=== PATIENT | male | born 1940 | race Caucasian/White ===

== ENCOUNTER 2021-06-02 16:05 | Emergency (ER) | payer MEDICARE ==
[2021-06-02 16:13] VITALS: BP 155/82; PULSE 81; TEMP 97.7
--- NOTE | 2021-06-02 16:24 | ED ---
SOB HPI - General Chief Complaint: Shortness of Breath Stated Complaint: [place] Time Seen by Provider: 06/02/21 16:24 Source: patient Mode of arrival: wheelchair Limitations: no limitations - History of Present Illness Initial Comments: Ian is a 80-year-old gentleman with a history of myelodysplastic disorder for which she follows up oncology out of [facility] in [place]. Patient presents to the emergency Department today with complaint of shortness of breath that has been progressively worsening for about 2 weeks. 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 Patient states for the past 2 weeks is just been feeling very tired and short of breath with any ambulation. This is new for him. Patient is not certain what his baseline labs are what his typical white blood cell count is. He reports taking oral medications for myelodysplastic syndrome recent medication change due to failure of the first medication. - Related Data Allergies Allergy/AdvReac Type Severity Reaction Status Date / Time No Known Allergies Allergy Verified 06/02/21 16:08 Review of Systems ROS Statement: Those systems with pertinent positive or pertinent negative responses have been documented in the HPI. ROS Other: All systems not noted in ROS Statement are negative. Past Medical History Past Medical History: Thyroid Disorder Additional Past Medical History / Comment(s): multiple myelfibrosis, History of Any Multi-Drug Resistant Organisms: None Reported Past Surgical History: No Surgical Hx Reported Past Psychological History: No Psychological Hx Reported Smoking Status: Never smoker Past Alcohol Use History: None Reported Past Drug Use History: None Reported General Exam - General Exam Comments Initial Comments: Physical Exam GENERAL: Elderly gentleman, appears pale and chronically ill HENT: Normocephalic, Atraumatic. EYES: PERRL, EOMI No conjunctival pallor PULMONARY: Decreased lung excursion due to abdominal distention CARDIOVASCULAR: RRR ABDOMEN: Firm, distended, spleen palpable to umbilicus SKIN: Pale : Deferred NEUROLOGIC: Patient is alert and oriented x3. Moving all extremities spontaneously MUSCULOSKELETAL: Bilateral lower extremity edema PSYCHIATRIC: Normal psychiatric evaluation. Limitations: no limitations Course Vital Signs 06/02/21 06/02/21 16:09 16:20 Temperature 97.7 F Pulse Rate 81 Respiratory 28 H 24 Rate Blood Pressure 155/82 O2 Sat by Pulse 94 L Oximetry Medical Decision Making - Medical Decision Making Patient was seen and evaluated, broad range of labs were obtained Patient has remarkable splenomegaly, appears somewhat pale and has dyspnea Labs were obtained, I was notified by the laboratory phlebotomist that due to the significant abnormality in his white blood cell count I cannot be confirmed until reviewed by the pathologist however was reading greater than 300 today and review under a slide was suggestive of blast crisis The suspected lab findings were discussed with the family, patient states that this is what they have been warned about. Feel like transfer to a tertiary care center for further evaluation. Patient's oncologist works out of [facility] in [place] however this does not have adequate ICU resources available to [facility] in [place]. Patient care was discussed with Dr. 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 - Lab Data Result diagrams: 06/02/21 16:43 06/02/21 16:43 Lab Results 06/02/21 06/02/21 06/02/21 Range/Units 16:40 16:43 16:43 RBC (4.30-5.90) m/uL Hgb (13.0-17.5) gm/dL Hct (39.0-53.0) % MCV (80.0-100.0) fL MCH (25.0-35.0) pg MCHC (31.0-37.0) g/dL RDW (11.5-15.5) % Plt Count (150-450) k/uL MPV Hypochromasia Poikilocytosis Anisocytosis Macrocytosis PT (9.0-12.0) sec INR (<1.2) APTT (22.0-30.0) sec Sodium 138 (137-145) mmol/L Potassium 3.8 (3.5-5.1) mmol/L Chloride 102 (98-107) mmol/L Carbon Dioxide 25 (22-30) mmol/L Anion Gap 11 mmol/L BUN 52 H (9-20) mg/dL Creatinine 2.06 H (0.66-1.25) mg/dL Est GFR (CKD-EPI)AfAm 35 (>60 ml/min/1.73 sqM) Est GFR (CKD-EPI)NonAf 30 (>60 ml/min/1.73 sqM) Glucose 114 H (74-99) mg/dL Lactic Ac Sepsis Rflx Plasma Lactic Acid Janak 2.3 H* (0.7-2.0) mmol/L Uric Acid 9.2 H (3.5-8.5) mg/dL Calcium 7.2 L (8.4-10.2) mg/dL Magnesium 2.3 (1.6-2.3) mg/dL Total Bilirubin 0.9 (0.2-1.3) mg/dL AST 37 (17-59) U/L ALT 19 (4-49) U/L Alkaline Phosphatase 126 (38-126) U/L Ammonia 33 H (<30) umol/L Troponin I (0.000-0.034) ng/mL NT-Pro-B Natriuret Pep pg/mL Total Protein 6.6 (6.3-8.2) g/dL Albumin 3.6 (3.5-5.0) g/dL Blood Type B Positive Blood Type Confirm Blood Type Recheck No Previous Record Bld Type Recheck Status CABO Indicated Antibody Screen NEGATIVE Spec Expiration Date 06/05/2021 - 233906/02/21 06/02/21 06/02/21 Range/Units 16:43 16:43 16:43 RBC 2.87 L (4.30-5.90) m/uL Hgb 9.5 L (13.0-17.5) gm/dL Hct 28.2 L (39.0-53.0) % MCV 98.4 (80.0-100.0) fL MCH 33.3 (25.0-35.0) pg MCHC 33.8 (31.0-37.0) g/dL RDW 20.8 H (11.5-15.5) % Plt Count 112 L (150-450) k/uL MPV 15.9 Hypochromasia Marked Poikilocytosis Slight Anisocytosis Moderate Macrocytosis Moderate PT 15.0 H (9.0-12.0) sec INR 1.5 H (<1.2) APTT 35.6 H (22.0-30.0) sec Sodium (137-145) mmol/L Potassium (3.5-5.1) mmol/L Chloride (98-107) mmol/L Carbon Dioxide (22-30) mmol/L Anion Gap mmol/L BUN (9-20) mg/dL Creatinine (0.66-1.25) mg/dL Est GFR (CKD-EPI)AfAm (>60 ml/min/1.73 sqM) Est GFR (CKD-EPI)NonAf (>60 ml/min/1.73 sqM) Glucose (74-99) mg/dL Lactic Ac Sepsis Rflx Plasma Lactic Acid Janak (0.7-2.0) mmol/L Uric Acid (3.5-8.5) mg/dL Calcium (8.4-10.2) mg/dL Magnesium (1.6-2.3) mg/dL Total Bilirubin (0.2-1.3) mg/dL AST (17-59) U/L ALT (4-49) U/L Alkaline Phosphatase (38-126) U/L Ammonia (<30) umol/L Troponin I 0.064 H* (0.000-0.034) ng/mL NT-Pro-B Natriuret Pep pg/mL Total Protein (6.3-8.2) g/dL Albumin (3.5-5.0) g/dL Blood Type Blood Type Confirm Blood Type Recheck Bld Type Recheck Status Antibody Screen Spec Expiration Date 06/02/21 06/02/21 06/02/21 Range/Units 16:43 16:45 17:09 RBC (4.30-5.90) m/uL Hgb (13.0-17.5) gm/dL Hct (39.0-53.0) % MCV (80.0-100.0) fL MCH (25.0-35.0) pg MCHC (31.0-37.0) g/dL RDW (11.5-15.5) % Plt Count (150-450) k/uL MPV Hypochromasia Poikilocytosis Anisocytosis Macrocytosis PT (9.0-12.0) sec INR (<1.2) APTT (22.0-30.0) sec Sodium (137-145) mmol/L Potassium (3.5-5.1) mmol/L Chloride (98-107) mmol/L Carbon Dioxide (22-30) mmol/L Anion Gap mmol/L BUN (9-20) mg/dL Creatinine (0.66-1.25) mg/dL Est GFR (CKD-EPI)AfAm (>60 ml/min/1.73 sqM) Est GFR (CKD-EPI)NonAf (>60 ml/min/1.73 sqM) Glucose (74-99) mg/dL Lactic Ac Sepsis Rflx Y Plasma Lactic Acid Janak (0.7-2.0) mmol/L Uric Acid (3.5-8.5) mg/dL Calcium (8.4-10.2) mg/dL Magnesium (1.6-2.3) mg/dL Total Bilirubin (0.2-1.3) mg/dL AST (17-59) U/L ALT (4-49) U/L Alkaline Phosphatase (38-126) U/L Ammonia (<30) umol/L Troponin I (0.000-0.034) ng/mL NT-Pro-B Natriuret Pep 2320 pg/mL Total Protein (6.3-8.2) g/dL Albumin (3.5-5.0) g/dL Blood Type Blood Type Confirm B Positive Blood Type Recheck Bld Type Recheck Status Antibody Screen Spec Expiration Date - EKG Data -: EKG Interpreted by Me EKG Comments: EKG was obtained due to complaint of shortness of breath, EKG was obtained at 1624, rate is 83 rhythm is a narrow complex regular rhythm, P waves do appear to be present in leads 3 but are difficult to discern in lead 2. I do feel this is a sinus rhythm. No acute ST elevations or depressions or evidence of ischemia or infarction. Disposition Clinical Impression: Acute leukemia Disposition: OTHER INSTITUTION NOT DEFINED Condition: Critical Is patient prescribed a controlled substance at d/c from ED?: No Referrals: Nonstaff,Physician [Primary Care Provider] - 1-2 days - Out of Hospital Transfer - Req. Specs Out of Hospital Transfer - Requested Specifics: Other Emergency Center ([facility]
[2021-06-02 16:28] VITALS: RESP 24
--- NOTE | 2021-06-02 16:53 | XR ---
EXAMINATION TYPE: XR chest 2V DATE OF EXAM: 06/02/2021 COMPARISON: NONE HISTORY: Short of breath TECHNIQUE: 2 views FINDINGS: There is no heart failure nor confluent pneumonic infiltrate. Costophrenic angles are clear . Thoracic aorta is atheromatous. There are chest leads. Bony thorax is intact. IMPRESSION: No active cardiopulmonary disease.
[2021-06-02 16:57] LABS: Anisocytosis Moderate; Basophils # (A) 48.3 k/uL (0-0.2); Basophils % (A) 14 %; Eosinophils # (A) 0.6 k/uL (0-0.7); Eosinophils % (A) 0 %; HCT 28.2 % (39.0-53.0); HGB 9.5 gm/dL (13.0-17.5); Hypochromasia Marked; Lymphocytes % (A) 6 %; MCH 33.3 pg (25.0-35.0); MCHC 33.8 g/dL (31.0-37.0); MCV 98.4 fL (80.0-100.0); Macrocytosis Moderate; Mean Platelet Volume 15.9; Monocytes # (A) 18.6 k/uL (0-1.0); Monocytes % (A) 5 %; Neutrophils # (A) 273.7 k/uL (1.3-7.7); Neutrophils % (A) 79 %; Platelet Count 112 k/uL (150-450); Poikilocytosis Slight; RBC 2.87 m/uL (4.30-5.90); RDW 20.8 % (11.5-15.5)
[2021-06-02 16:58] LABS: Lymphocytes # (A) 20.4 k/uL (1.0-4.8)
[2021-06-02 17:00] LABS: INR 1.5 (<1.2); Partial Thromboplastin Time 35.6 sec (22.0-30.0)
[2021-06-02 17:03] LABS: Albumin 3.6 g/dL (3.5-5.0); Calcium 7.2 mg/dL (8.4-10.2); Magnesium 2.3 mg/dL (1.6-2.3); Potassium 3.8 mmol/L (3.5-5.1); Total Bilirubin 0.9 mg/dL (0.2-1.3); Total Protein 6.6 g/dL (6.3-8.2); Uric Acid 9.2 mg/dL (3.5-8.5)
[2021-06-02 17:09] LABS: Lactic Acid, Venous 2.3 mmol/L (0.7-2.0); WBC 345.8 k/uL (3.8-10.6)
== END 2021-06-02 18:40 | disposition other institution (70) ==
LOC: EC 16:05
DX: C95.00 Acute leukemia of unspecified cell type not having achieved remission (principal)
CPT/HCPCS: 36415; 71046; 80053; 82140; 83605; 83735; 83880; 84484; 84550; 85025; 85610; 85730; 86850; 86900; 86901; 93005; 99285